=== PATIENT | female | born 1995 | race Caucasian/White ===

== ENCOUNTER 2020-09-04 18:56 | Outpatient (CLI) | payer MEDICAID ==
--- NOTE | 2020-09-05 17:31 | Ultrasound Report ---
PROCEDURE: Pelvic w/Transvaginal INDICATIONS: ARCUATE UTERUS, MILVIA OSWALD SYNDROME TECHNIQUE: Real-time scanning was performed of the pelvic organs, with image documentation. Additional endovagi nal scanning was necessary due to incomplete visualization of the adnexal and endometrial structures by transabdominal scanning. COMPARISON: None. FINDINGS: No pathologic free abdominal or pelvic fluid. Uterus: Uterus is normal in size at 6.6 x 3.8 x 5.3 cm. The endometrium measures 9 mm in combined t hickness. Homogeneous uterine echotexture. Suggestion of possible arcuate uterine morphology. The muscogee usman is retroverted and retroflexed. Ovaries: Right ovary measures 3.3 x 2.9 x 2.9 cm. Right ovarian volume measures 14 mL. An incidental dominant follicle seen on the right. Left ovary measures 3.1 x 1.4 x 2.4 cm with ovarian volume of 5 mL IMPRESSION: Mildly arcuate uterine morphology. If uterine morphology needs to be more definitively assessed, cons ider pelvic MRI. Otherwise, unremarkable sonographic evaluation of the pelvis. Reviewed by: Jeronimo Rosenberg MD on 09/05/2020 5:30 PM PDT Approved by: Jeronimo Rosenberg MD on 09/05/2020 5:30 PM PDT Station ID: [id number]
== END 2020-09-04 18:57 | disposition home or self-care (01) ==
LOC: DI 18:56
PROVIDERS: ATTEND Obstetrics & Gynecology
DX: Q51.810 Arcuate uterus (principal); Q87.0 Congenital malformation syndromes predominantly affecting facial appearance